=== PATIENT | male | born 1995 | race Two or more races ===

== ENCOUNTER 2021-02-09 17:28 | Emergency (ER) | payer MEDICAID ==
[~2021-02-09] VITALS: Ht 162.6 cm; Wt 50.0 kg
[2021-02-09] MEDS ORDERED: IBUPROFEN 800 MG TABLET PO ONE (20:00)
[2021-02-09] MEDS ORDERED: BACITRACIN 0.9 GM PACKET OINTMENT TP ONE (20:00)
[2021-02-09 20:55] VITALS: BP 118/79
== END 2021-02-09 21:00 | disposition home or self-care (01) ==
LOC: EMS 17:28
DX: S90.112A Contusion of left great toe without damage to nail, initial encounter (principal); W20.8XXA Other cause of strike by thrown, projected or falling object, initial encounter; Y93.89 Activity, other specified; Y92.89 Other specified places as the place of occurrence of the external cause; Y99.8 Other external cause status
CPT/HCPCS: 99283